=== PATIENT | male | born 1990 | race Two or more races ===

== ENCOUNTER 2020-08-29 13:06 | Emergency (ER) | payer OTHER ==
[~2020-08-29] VITALS: Ht 167.6 cm; Wt 85.7 kg
--- NOTE | 2020-08-29 13:16 | NUR ---
pt bibra to er bed 03, presents w/ r gtreater toe pain, bandage possible laceration s/p getting caught in a truck tail lift. pt was given fentanyl 100mcg iv captain room service. awaiting md irvin.
[2020-08-29] MEDS ORDERED: MORPHINE SULFATE INJ 4 MG/ML DISP.SYRIN ONE (13:29)
[2020-08-29] MEDS ORDERED: TDAP [DIPH/PERTUSSIS/TET] 0.5 ML VIAL IM ONE (13:29)
[2020-08-29] MEDS ORDERED: ONDANSETRON HCL/PF 4 MG/2 ML VIAL ONE (13:29)
[2020-08-29] MEDS: ONDANSETRON HCL/PF 4 MG/2 ML VIAL IV ONE (13:36)
[2020-08-29] MEDS: MORPHINE SULFATE INJ 10 MG/ML DISP.SYRIN IV ONE (13:37)
[2020-08-29] MEDS: TDAP [DIPH/PERTUSSIS/TET] 0.5 ML VIAL IM ONE (13:44)
[2020-08-29] MEDS ORDERED: LIDOCAINE 1% INJ 50 ML MDV IJ ONE (14:33)
[2020-08-29 15:59] VITALS: BP 132/80
--- NOTE | 2020-08-29 15:59 | NUR ---
woud care provided. walkintg boot and crutches given. discharge home in stable condition.
== END 2020-08-29 16:00 | disposition home or self-care (01) ==
LOC: ER 13:08
DX: S92.421A Displaced fracture of distal phalanx of right great toe, initial encounter for closed fracture (principal); Z98.890 Other specified postprocedural states; W23.0XXA Caught, crushed, jammed, or pinched between moving objects, initial encounter; Y93.89 Activity, other specified; Y92.89 Other specified places as the place of occurrence of the external cause; Y99.8 Other external cause status
CPT/HCPCS: 64450; 73630; 90471; 90715; 96374; 96375; 99284; A6403 ×2; J2270; J2405; J3490